=== PATIENT | male | born 1980 ===

== ENCOUNTER 2017-06-03 23:08 | Emergency (ER) | payer OTHER ==
[2017-06-04 00:19] LABS: Basophils # (Auto) 0.1 K/mm3 (0.0-0.1); Basophils % (Auto) 0.5 % (0.0-1.8); Eosinophils # (Auto) 0.1 K/mm3 (0.0-0.4); Eosinophils % (Auto) 0.7 % (0.0-4.3); Hematocrit 42.5 % (35.5-45.6); Lymphocytes # (Auto) 2.5 K/mm3 (1.2-5.4); Lymphocytes % (Auto) 25.5 % (13.4-35.0); Mean Corpuscular HGB Conc 33 % (32-34); Mean Corpuscular Hemoglobin 30 pg (28-32); Mean Corpuscular Volume 90 fl (84-94); Monocytes # (Auto) 0.9 K/mm3 (0.0-0.8); Monocytes % (Auto) 9.6 % (0.0-7.3); Platelet Count 278 K/mm3 (140-440); Red Blood Count 4.73 M/mm3 (3.65-5.03); Red Cell Distribution Width 13.5 % (13.2-15.2)
[2017-06-04 00:23] LABS: BUN/Creatinine Ratio 20; Blood Urea Nitrogen 20 mg/dL (9-20); Calcium 9.3 mg/dL (8.4-10.2); Hemolysis Index 24
--- NOTE | 2017-06-04 01:30 | Cat Scan Report ---
FINAL REPORT EXAM: CT HEAD/BRAIN WO CON HISTORY: head injury TECHNIQUE: Routine axial imaging was obtained of the brain without IV contrast. FINDINGS: There is no evidence of acute stroke or hemorrhage. The ventricular system is appropriate in size and is symmetric. The basal cisterns appear normal. There are no extra-axial fluid collections. The visualized sinuses are clear. The mastoid air cells are well pneumatized. The calvarium shows no evidence of fracture or scalp injury. IMPRESSION: Within normal limits.
--- NOTE | 2017-06-04 01:50 | Cat Scan Report ---
FINAL REPORT EXAM: CT CERVICAL SPINE WO CON HISTORY: head injury TECHNIQUE: Routine axial imaging was obtained of the cervical spine without IV contrast with sagittal and coronal reconstructions. FINDINGS: There is moderate narrowing of the C5-C6 disc with mild narrowing of the C6-C7 disc. There are anterior osteophytes at the C4-5 and C5-C6 level. At the C3-C4 level there is a small right-sided posterior spur abutting the thecal sac. There is no evidence of fracture. The pre vertebral soft tissues and C1-C2 articulation appear intact IMPRESSION: Degenerative arthritic changes as described. No evidence of acute injury.
[2017-06-04] MEDS ORDERED: XYLOCAINE 1% 20 mL INFILTRATI ONE (04:06)
[2017-06-04] MEDS ORDERED: NACL 0.9% IR ONE (04:06)
[2017-06-04] MEDS ORDERED: TENIVAC IM ONE (04:06)
[2017-06-04] MEDS ORDERED: MOTRIN PO ONE (04:06)
--- NOTE | 2017-06-04 04:18 | Emergency Department Report ---
Chief Complaint: Fall Stated Complaint: LAC TO CHIN Time Seen by Provider: 06/04/17 04:06 - HPI History of Present Illness: Patient is a 37-year-old -French male who states he was at home sitting on his couch he fell asleep and crashed into a plate glass table. Patient states once he hit the table he woke up suddenly. He has a laceration to his chin. Patient states he did not have any chest pain shortness of breath before the incident. - ROS Review of Systems: Review of systems are negative except for those elements in HPI - Exam Vital Signs: Vital Signs 06/03/17 06/04/17 06/04/17 23:22 03:48 03:49 Temperature 98 F 98.0 F Pulse Rate 94 H 80 Respiratory 16 20 20 Rate Blood Pressure 125/88 Blood Pressure 131/76 [Left] O2 Sat by Pulse 100 97 97 Oximetry Physical Exam: Limited physical exam there is a 2 cm laceration on the chin MSE screening note: Focused history and physical exam performed. Due to findings the following was ordered: Laceration will be repaired by Carter Lombardo ED Medical Decision Making - Lab Data Result diagrams: 06/03/17 23:55 06/03/17 23:55 - Medical Decision Making Please see procedure note by Carter Lombrado patient's chin was repaired patient will be discharged at this time ED Disposition for MSE Clinical Impression: Laceration Disposition: DC-01 TO HOME OR SELFCARE Is pt being admited?: No Does the pt Need Aspirin: No Condition: Fair Prescriptions: Ibuprofen [Motrin] 600 mg PO Q8H PRN #14 tablet PRN Reason: Pain Referrals: JUSTINE GTZ MD [Primary Care Provider] - 3-5 Days
[2017-06-04] MEDS ORDERED: TRIPLE ANTIBIOTIC TP ONE (05:26)
--- NOTE | 2017-06-04 05:29 | Emergency Department Report ---
Blank Doc - Documentation Documentation: Procedure note: chin laceration J shaped laceration approximately 3-4 cm anterior chin. Area infiltrated with lidocaine 1% without epinephrine. Good local anesthesia achieved. wound irrigated with 200-300ccs of sterile saline into wound. Seven 4-0 proline sutures placed, good approximation of wound achieved. covered with small amount of triple abx ointment and gauze afterward. Procedure tolerated well with minimal bleeding. I informed Dr. Tellez of laceration repair
[2017-06-04 05:48] VITALS: BP 130/79
== END 2017-06-04 05:54 | disposition home or self-care (01) ==
LOC: ED 23:08
DX: S01.81XA Laceration without foreign body of other part of head, initial encounter (principal); W18.39XA Other fall on same level, initial encounter; Y93.89 Activity, other specified; Y92.89 Other specified places as the place of occurrence of the external cause; Y99.8 Other external cause status
CPT/HCPCS: 36415; 70450; 72125; 80048; 85025; 90471; 90714; 93005; 93010; 99284; A6250

== ENCOUNTER 2017-06-11 08:17 | Emergency (ER) | payer OTHER ==
[2017-06-11 08:32] VITALS: BP 120/66
--- NOTE | 2017-06-11 11:06 | Emergency Department Report ---
Suture/Staple Removal - HPI Chief Complaint: Laceration/Recheck/Suture Stated Complaint: REMOVAL OF STITCHES Time Seen by Provider: 06/11/17 10:36 When Sutures or Senait Placed: 5-7 Days Ago Wound Location: chin ED Review of Systems ROS: Stated complaint: REMOVAL OF STITCHES Other details as noted in HPI Comment: All other systems reviewed and negative ED Past Medical Hx - Past Medical History Previous Medical History?: No - Surgical History Past Surgical History?: No - Social History Smoking Status: Never Smoker Substance Use Type: None - Medications Home Medications: Home Medications Medication Instructions Recorded Confirmed Last Taken Type Ibuprofen [Motrin] 600 mg PO Q8H PRN #14 tablet 06/04/17 Unknown Rx Suture Removal Exam - Exam General: Vital signs noted. No distress. Alert and acting appropriately. Wound: No Pathologic Erythema, No Tenderness, No Drainage, No Pus, No Wound Dehiscence Other Systems: All other systems reviewed and are unremarkable. Incision approximated well healed well. ED Course Vital Signs 06/11/17 08:30 Temperature 97.8 F Pulse Rate 91 H Respiratory 18 Rate Blood Pressure 120/66 O2 Sat by Pulse 100 Oximetry ED Recheck MDM - Differential Diagnosis Wound Recheck - Medical Decision Making Patient's been evaluated by this provider fast track. This provider removed sutures. Under his chin. Patient tolerated procedure well. Discussed with patient that he needs to wash his polo and chin area gently with warm soapy water. And 2 pack dry. He can apply triple antibiotic cream or ointment. Patient verbalized understanding Critical care attestation.: If time is entered above; I have spent that time in minutes in the direct care of this critically ill patient, excluding procedure time. ED Disposition Clinical Impression: Visit for suture removal Disposition: DC-01 TO HOME OR SELFCARE Is pt being admited?: No Does the pt Need Aspirin: No Condition: Stable Instructions: Suture Removal (ED) Additional Instructions: Keep area clean and dry I triple antibiotics Referrals: JUSTINE GTZ MD [Primary Care Provider] - 3-5 Days Forms: Work/School Release Form(ED)
== END 2017-06-11 11:10 | disposition home or self-care (01) ==
LOC: ED 08:17
DX: Z48.02 Encounter for removal of sutures (principal)